=== PATIENT | male | born 1965 | race African-American/Black ===

== ENCOUNTER 2025-03-17 08:40 | Inpatient (IN) | payer OTHER, MEDICAID ==
[~2025-03-17] VITALS: Ht 175.3 cm; Wt 147.9 kg
[2025-03-17 08:44] VITALS: O2SAT 99
[2025-03-17 09:05] LABS: BASOPHILS % 0.4 % (0.0-2.0); EOSINOPHILS % 1.0 % (0.0-5.0); HEMATOCRIT. 32.5 % (42.0-52.0); HEMOGLOBIN. 10.5 g/dL (14.0-18.0); LYMPHOCYTES % 10.3 % (20.0-50.0); MEAN PLATELET VOLUME 7.4 fl (7.4-10.4); MONOCYTES % 6.3 % (2.0-8.0); NEUTROPHILS % 82.0 % (40.0-76.0); PLATELET 327 x1000/uL (130-400); RED BLOOD CELL COUNT 3.60 mill/uL (4.7-6.1); RED CELL DISTRIBUTION WIDTH 19.1 % (11.6-14.6)
[2025-03-17] MEDS: SODIUM CHLORIDE 0.9% 1,000 ML IV ONE ×2 (09:24→10:27)
[2025-03-17 09:26] LABS: CREATININE 2.3 mg/dL (0.6-1.3)
[2025-03-17 09:27] LABS: TROPONIN I HIGH SENSITIVITY 23 ng/L (3.0-53); UREA NITROGEN BLOOD 59 mg/dL (9-23)
[2025-03-17] MEDS: NOREPINEPHRINE 8MG/250ML PMX 250 ML IV SCH (10:15)
[2025-03-17] MEDS: ACETAMINOPHEN 1000MG/100ML 100 ML IV ONE (10:36)
[2025-03-17] MEDS ORDERED: ACETAMINOPHEN 325MG TABLET PO PRN (11:30)
[2025-03-17] MEDS ORDERED: ONDANSETRON HCL 4MG/2ML INJ IV PRN (11:30)
[2025-03-17] MEDS ORDERED: IPRATROPIUM/ALBUTEROL 0.5-3(2.5)MG/3ML NEB HHN PRN (11:30)
[2025-03-17] MEDS ORDERED: CLONIDINE 0.1MG TABLET PO PRN (11:30)
[2025-03-17 12:07] LABS: ETHANOL BLOOD < 10 mg/dL (<10)
[2025-03-17 12:08] LABS: ASPARTATE AMINOTRANSFERASE 11 IU/L (<34)
[2025-03-17 12:09] LABS: BILIRUBIN DIRECT 0.2 mg/dL (<=3.0); BILIRUBIN TOTAL 0.6 mg/dL (0.1-1.0); PHOSPHORUS 4.4 mg/dL (2.5-4.9); PROTEIN TOTAL 5.7 g/dL (6.0-8.3)
[2025-03-17 12:11] LABS: T4 FREE 1.21 ng/dL (0.89-1.76)
[2025-03-17 13:26] LABS: CLARITY URINE CLEAR (CLEAR); COLOR URINE DARK YELLOW (YELLOW); GLUCOSE URINE NEGATIVE (NEGATIVE); KETONES URINE NEGATIVE (NEGATIVE); LEUKOCYTE ESTERASE URINE NEGATIVE (NEGATIVE); NITRITE URINE NEGATIVE (NEGATIVE); OCCULT BLOOD URINE NEGATIVE (NEGATIVE); PH URINE 5.5 (4.5-8.0); PROTEIN URINE 1+ (NEGATIVE); SPECIFIC GRAVITY URINE 1.017 (1.005-1.030); UROBILINOGEN URINE 0.2 E.U./dL (0.2-1.0)
[2025-03-17 13:31] LABS: INR 1.0
[2025-03-17 13:33] LABS: *AMPHETAMINES SCREEN URINE NEGATIVE (NEGATIVE); *BARBITURATES SCREEN URINE NEGATIVE (NEGATIVE); *BENZODIAZEPINES SCREEN URINE NEGATIVE (NEGATIVE)
[2025-03-17 13:34] LABS: *COCAINE SCREEN URINE NEGATIVE (NEGATIVE); CANNABINOID URINE SCREEN NEGATIVE (NEGATIVE); ECSTASY MDMA SCREEN URINE NEGATIVE (NEGATIVE); METHADONE URINE SCREEN NEGATIVE (NEGATIVE); OPIATES URINE SCREEN NEGATIVE (NEGATIVE); PHENCYCLIDINE URINE SCREEN NEGATIVE (NEGATIVE)
[2025-03-17 13:38] LABS: SQUAMOUS EPITHELIAL CELL URINE 1+ /lpf (RARE/1+)
[2025-03-17 13:39] LABS: BACTERIA URINE TRACE
[2025-03-17 13:40] VITALS: BP 91/50; PULSE 80; RESP 18; TEMP 36.2; O2SAT 98
[2025-03-17 13:40] LABS: RBC URINE NONE SEEN /hpf (0-2); WBC URINE 0-2 /hpf (0-2)
[2025-03-17 16:00] VITALS: BP 85/48; PULSE 78; RESP 18; TEMP 36.3; O2SAT 97
[2025-03-17 17:00] VITALS: BP 91/50; PULSE 80; RESP 18; TEMP 36.1956
[2025-03-17] MEDS: TRAMADOL 50MG TABLET PO NR (18:50)
[2025-03-17] MEDS: ACETAMINOPHEN 325MG TABLET PO PRN (18:51)
[2025-03-17 20:00] VITALS: BP 104/47; PULSE 92; RESP 16; TEMP 36.8; O2SAT 98
[2025-03-17] MEDS ORDERED: NALOXONE HCL 0.4MG/ML VIAL IV PRN (21:00)
[2025-03-17] MEDS: APIXABAN 5 MG TABLET PO SCH (21:00)
[2025-03-17] MEDS: FAMOTIDINE 20MG TABLET PO SCH (22:06)
[2025-03-17] MEDS: HYDROCODONE/ACETAMINOPHEN 5/325MG TABLET PO PRN (22:07)
[2025-03-17] MEDS: ATORVASTATIN CALCIUM 40MG TABLET PO SCH (22:08)
[2025-03-17 23:57] LABS: CREATINE KINASE MB FRACTION 1.6 ng/mL (0.5-3.6); TROPONIN I HIGH SENSITIVITY 22.0 ng/L (3.0-53)
[2025-03-18] VITALS: BP 87/49; PULSE 79; RESP 16; TEMP 36.4; O2SAT 98
[2025-03-18 04:00] VITALS: BP 101/57; PULSE 77; RESP 17; TEMP 36.1; O2SAT 98
[2025-03-18 07:36] LABS: PLATELET 319 x1000/uL (130-400); RED BLOOD CELL COUNT 3.28 mill/uL (4.7-6.1); RED CELL DISTRIBUTION WIDTH 18.8 % (11.6-14.6)
[2025-03-18 07:58] LABS: CREATININE 2.4 mg/dL (0.6-1.3); TRIGLYCERIDE 138 mg/dL (0-150); UREA NITROGEN BLOOD 62 mg/dL (9-23)
[2025-03-18 07:59] LABS: LDL CHOLESTEROL 45 mg/dL (5-100)
[2025-03-18 08:00] VITALS: BP 101/62; PULSE 80; RESP 16; TEMP 36.2; O2SAT 99
[2025-03-18 08:00] LABS: PHOSPHORUS 4.5 mg/dL (2.5-4.9)
[2025-03-18] MEDS: METOPROLOL TARTRATE 25MG TABLET PO SCH (09:00)
[2025-03-18] MEDS ORDERED: METOPROLOL SUCCINATE 50MG ER TABLET PO SCH (09:00)
[2025-03-18] MEDS: EMPAGLIFLOZIN 10MG TABLET PO SCH (10:37)
[2025-03-18 12:00] VITALS: BP 101/57; PULSE 79; RESP 19; TEMP 36.3; O2SAT 97
[2025-03-18 16:00] VITALS: BP 81/42; PULSE 80; RESP 19; TEMP 36.9; O2SAT 95
[2025-03-18 20:00] VITALS: BP 113/52; PULSE 86; RESP 20; TEMP 36.4; O2SAT 99
[2025-03-18] MEDS: FUROSEMIDE 20MG/2ML VIAL IVP SCH (22:00)
[2025-03-18] MEDS ORDERED: FURO-152 MT (22:13)
[2025-03-19] VITALS: BP 110/61; PULSE 83; RESP 20; TEMP 36.9; O2SAT 100
[2025-03-19 04:00] VITALS: BP 117/52; PULSE 74; RESP 20; TEMP 36.4; O2SAT 98
[2025-03-19 08:00] VITALS: BP 91/42; PULSE 82; RESP 17; TEMP 36.5; O2SAT 100
[2025-03-19] MEDS: SILVER SULFADIAZINE 1% CREAM 50GM TOP SCH (09:09)
[2025-03-19] MEDS: SODIUM CHLORIDE 0.9% 500 ML IV ONE (09:46)
[2025-03-19 12:00] VITALS: BP 102/52; PULSE 72; RESP 18; TEMP 36.3; O2SAT 98
[2025-03-19] MEDS ORDERED: METO25TA6 PO ×2 (13:56→14:42)
[2025-03-19] MEDS ORDERED: APIX5TAB PO ×2 (13:56→14:42)
[2025-03-19] MEDS ORDERED: EMPA10TA PO ×2 (13:56→14:42)
[2025-03-19] MEDS ORDERED: LIP40 PO ×2 (13:56→14:42)
[2025-03-19 14:36] VITALS: BP 101/64; PULSE 74; RESP 16; TEMP 97.6
[2025-03-19] MEDS ORDERED: FURO-152 MT (14:42)
== END 2025-03-19 15:00 | disposition home or self-care (01) | DRG 300 ==
LOC: ER 09:10 → EDBEDREQTM 11:20 → EDBEDREQ 11:20 → ENRESERV 11:52 → 6WST 13:00
PROVIDERS: ADMIT Internal Medicine; ATTEND Internal Medicine
DX: I83.892 Varicose veins of left lower extremity with other complications (principal); I13.0 Hypertensive heart and chronic kidney disease with heart failure and stage 1 through stage 4 chronic kidney disease, or unspecified chronic kidney disease; N17.9 Acute kidney failure, unspecified; I82.401 Acute embolism and thrombosis of unspecified deep veins of right lower extremity; I48.91 Unspecified atrial fibrillation; I50.9 Heart failure, unspecified; D64.9 Anemia, unspecified; E66.01 Morbid (severe) obesity due to excess calories; F17.210 Nicotine dependence, cigarettes, uncomplicated; G47.33 Obstructive sleep apnea (adult) (pediatric); N18.32 Chronic kidney disease, stage 3b; I87.2 Venous insufficiency (chronic) (peripheral); I49.3 Ventricular premature depolarization; F10.10 Alcohol abuse, uncomplicated; Y90.9 Presence of alcohol in blood, level not specified; I95.9 Hypotension, unspecified; I83.019 Varicose veins of right lower extremity with ulcer of unspecified site; I83.029 Varicose veins of left lower extremity with ulcer of unspecified site; I87.8 Other specified disorders of veins; M10.9 Gout, unspecified; Z68.42 Body mass index [BMI] 45.0-49.9, adult; Z79.01 Long term (current) use of anticoagulants; Z79.84 Long term (current) use of oral hypoglycemic drugs; Z79.899 Other long term (current) drug therapy
CPT/HCPCS: 36415; 71045; 80048; 80061; 80076; 80305; 80320; 81003; 82550; 82553; 83036; 83605; 83735; 83880; 84100; 84439; 84443; 84484; 85014; 85018; 85025; 85027; 85379; 93005; 93970; A4606; A6449; J1938; J7030; G0480; J0131